=== PATIENT | female | born 1965 | race Caucasian/White ===

== ENCOUNTER → 2018-02-15 | Outpatient (CLI) | payer SELFPAY ==
[2018-02-15 16:00] LABS: FREE T4 (FREE THYROXINE) 1.54 ng/dL (0.78-2.19)
[2018-02-15 16:13] LABS: THYROID STIMULATING HORMONE 0.3 uIU/mL (0.47-4.68)
== END ==
LOC: OD 14:52
PROVIDERS: ATTEND Otolaryngology
DX: E04.9 Nontoxic goiter, unspecified (principal); J30.9 Allergic rhinitis, unspecified; J38.3 Other diseases of vocal cords
CPT/HCPCS: 36415; 82785; 83970; 84439; 84443; 86003

== ENCOUNTER → 2018-03-01 | Outpatient (CLI) | payer SELFPAY ==
[2018-03-01 12:52] LABS: ALBUMIN 4.6 g/dL (3.5-5.0); PHOSPHORUS 4.7 mg/dL (2.5-4.5)
== END ==
LOC: OD 11:23
PROVIDERS: ATTEND Otolaryngology
DX: J30.9 Allergic rhinitis, unspecified (principal); E04.9 Nontoxic goiter, unspecified
CPT/HCPCS: 36415; 82040; 82306; 82310; 82785; 83735; 84100; 84443; 86003

== ENCOUNTER 2018-07-28 09:35 | Day surgery (SDC) | payer SELFPAY ==
[~2018-07-28 09:35] MED LIST: PROPOFOL INJ 200 MG/20 ML VIAL IV ONE
--- NOTE | 2018-07-28 11:12 | Operative Report ---
Operative Report DATE OF SURGERY: 07/28/18 Operative Report: The risks, benefits and alternatives of the procedure including the risk of bleeding, perforation requiring surgery have been explained to the patient in detail and informed consent has been obtained. Patient is brought back to the endoscopy suite and placed in a left, lateral decubital position. Timeout was called. Propofol medication is administered. Rectal examination is done which did not reveal any masses, tears or fissures. An Olympus videoscope was introduced into the patient's rectum. The scope was then carefully advanced all the way to the cecum. The cecum was identified by the usual anatomical landmarks including the ileocecal valve as well as the appendiceal office. Photodocumentation is obtained. The scope was then sequentially pulled back via the various segments of the colon including the ascending colon, hepatic flexure, transverse colon, splenic flexure, descending colon and finally into the rectosigmoid portions of the colon. Retroflexion maneuver is performed. PREOPERATIVE DIAGNOSIS: Rectal bleeding POSTOPERATIVE DIAGNOSIS: Internal hemorrhoids. Scarring in the proximal rectum suggestive of previous endoscopic mucosal resection therapy likely for polyp. There is a tattoo in the area of the hepatic flexure but no lesions are noted OPERATION: Diagnostic colonoscopy SURGEON: CLARENCE JACOBO ANESTHESIA: LMAC TISSUE REMOVED OR ALTERED: None. COMPLICATIONS: None. ESTIMATED BLOOD LOSS: As noted above. INTRAOPERATIVE FINDINGS: As noted above. PROCEDURE: Patient tolerated the procedure well. No immediate postprocedure complications are noted. Patient is discharged in good condition. Discharge date 07/28/2018. Discharge diet: Regular. Discharge activity: Regular. 2 to 3-week follow-up to discuss findings. Patient is instructed to call the office or proceed to the emergency room should there be any further problems or questions.
[2018-07-28 11:38] VITALS: BP 124/74
== END 2018-07-28 11:41 | disposition home or self-care (01) ==
LOC: END 09:35
PROVIDERS: ATTEND Internal Medicine Gastroenterology
PROC: 0DJD8ZZ Inspection of Lower Intestinal Tract, Via Natural or Artificial Opening Endoscopic (ICD-10-PCS; principal; 2018-07-28 12:30)
DX: K62.5 Hemorrhage of anus and rectum (principal); E04.9 Nontoxic goiter, unspecified; E07.9 Disorder of thyroid, unspecified; M17.0 Bilateral primary osteoarthritis of knee; F43.10 Post-traumatic stress disorder, unspecified; E78.2 Mixed hyperlipidemia; J30.9 Allergic rhinitis, unspecified; E55.9 Vitamin D deficiency, unspecified; F17.200 Nicotine dependence, unspecified, uncomplicated
CPT/HCPCS: 45378; 00811; J2704; 811

== ENCOUNTER → 2018-08-17 | Outpatient (CLI) | payer OTHER ==
[2018-08-17 16:49] LABS: FREE T3 4.4 pg/mL (2.77-5.27); FREE T4 (FREE THYROXINE) 1.26 ng/dL (0.78-2.19)
[2018-08-17 17:03] LABS: THYROID STIMULATING HORMONE 0.6 uIU/mL (0.47-4.68)
== END ==
LOC: OD 14:39
PROVIDERS: ATTEND Internal Medicine Endocrinology, Diabetes & Metabolism
DX: E04.2 Nontoxic multinodular goiter (principal)
CPT/HCPCS: 36415; 84439; 84443; 84481

== ENCOUNTER → 2019-07-13 | Outpatient (CLI) | payer OTHER ==
[2019-07-13 11:33] LABS: ALBUMIN 4.2 g/dL (3.5-5.0); CALCIUM 8.7 mg/dL (8.4-10.2); PHOSPHORUS 3.3 mg/dL (2.5-4.5)
== END ==
LOC: OD 10:38
PROVIDERS: ATTEND Otolaryngology
DX: E04.2 Nontoxic multinodular goiter (principal)
CPT/HCPCS: 36415; 82040; 82306; 82310; 83735; 83970; 84100; 84443